=== PATIENT | female | born 1950 | race Caucasian/White ===

== ENCOUNTER → 2018-07-02 | Outpatient (CLI) | payer MEDICARE ==
[~2018-07-02] MED LIST: AMINOPHYLLINE 250 MG/10 ML VIAL. ONE; REGADENOSON 0.4 MG/5 ML DISP.SYRIN. IV ONE
--- NOTE | 2018-07-02 09:35 | PCVCIMAG ---
APPROVED REPORT Study performed: 07/02/2018 08:01:24 EXAM: Comprehensive 2D, Doppler, and color-flow Echocardiogram Patient Location: Echo lab Status: routine BSA: 2.03 HR: 76 bpmBP: 146/100 mmHg Rhythm: NSR, bifascicular block Other Information Study Quality: Adequate Risk Factors: Cardiac Risk Factors: HTN, Hyperlipidemia Indications Dyspnea elevated calcium score 2D Dimensions IVSd: 13.18 (7-11mm) LVDd: 34.35 mm PWd: 13.11 (7-11mm) LVDs: 25.66 (25-40mm) Left Atrium: 36.02 (27-40mm) Aortic Root: 29.72 mm LV Single Plane 4CH: 57.26 % LV Single Plane 2CH: 58.69 % Biplane EF: 57.2 % Volumes Left Atrial Volume (Systole) Single Plane 4CH: 64.40 mLSingle Plane 2CH: 60.67 mL LA ESV Index: 31.00 mL/m2 Aortic Valve AoV Peak Robbie.: 1.43 m/s AO Peak Gr.: 8.20 mmHgLVOT Max P.25 mmHg LVOT Max V: 0.90 m/s Mitral Valve E/A Ratio: 0.6 MV Decel. Time: 210.05 ms MV E Max Robbie.: 0.48 m/s MV A Robbie.: 0.74 m/s IVRT: 155.71 ms Pulmonary Valve PV Peak Robbie.: 0.78 m/sPV Peak Gr.: 2.43 mmHg Pulmonary Vein P Vein S: 0.29 m/sP Vein A: 0.32 m/s P Vein D: 0.39 m/sP Vein A Dur.: 114.2 msec P Vein S/D Ratio: 0.74 Tricuspid Valve TR Peak Robbie.: 2.55 m/s TR Peak Gr.: 26.07 mmHg TV Vmax: 0.39 m/s Left Ventricle The left ventricle is normal size. There is normal LV segmental wall motion. Mild concentric left ventricular hypertrophy. Left ventricular systolic function is normal. The left ventricular ejection fraction is within the normal range. LVEF is 55-60%. Grade I - abnormal relaxation pattern. Right Ventricle The right ventricle is normal size. The right ventricular systolic function is normal. Atria The left atrium size is normal. The right atrium size is normal. Aortic Valve The aortic valve is normal in structure. No aortic regurgitation is present. There is no aortic valvular stenosis. Mitral Valve The mitral valve is normal in structure. Trace mitral regurgitation. No evidence of mitral valve stenosis. Tricuspid Valve The tricuspid valve is normal in structure. Mild tricuspid regurgitation with PAP of 33 mmHg. Pulmonic Valve The pulmonary valve is normal in structure. There is no pulmonic valvular regurgitation. Great Vessels The aortic root is normal in size. IVC is normal in size and collapses >50% with inspiration. Pericardium There is no pericardial effusion. There is no pleural effusion. <Conclusion> The left ventricle is normal size. Mild concentric left ventricular hypertrophy. Left ventricular systolic function is normal. Grade I - abnormal relaxation pattern. The right ventricle is normal size. The left atrium size is normal. The aortic valve is normal in structure. Trace mitral regurgitation. Mild tricuspid regurgitation with PAP of 33 mmHg.
--- NOTE | 2018-07-02 13:19 | PCVCIMAG ---
APPROVED REPORT Imaging Protocol: Rest Tc-99m/Stress Tc-99m 1 day Study performed: 07/02/2018 08:44:14 Indication: Dyspnea, High Ca Score Patient Location: Out-Patient Stress Nurse: Jane Solorzano RN, Tammy Stratton RN DC Tech:Gilda Rishi [facility] Ht: 5 ft 7 in Wt: 201 lbs BSA: 2.03 m2 HR: 71 bpm BP: 183/96 mmHg BMI: 31.47 Rhythm: Sinus Rhythm, RBBB, Bifascicular block Medical History Medical History: HTN, Hyperlipidemia Medications: Livalo, ASA, Xanax, Wellbutrin, Lisinopril, Metformin, Imitrex, Effexor, Ambien, Coreg Allergies: Iodine, Dilaudid Cardiac Risk Factors: Age Pretest Chest Pain Characteristics: No chest pain Exercise History: Sedentary Meds Held (24 hrs): Coreg Resting Data Rest SPECT myocardial perfusion imaging was performed in supine position 45 minutes following the intravenous injection of 9.7 mCi of Tc-99m Sestamibi. Time of rest injection: 0845 Date: 07/02/2018 Administration Route: IV Administration Site: Right Hand Pharmacologic Stress Pharmacologic stress test was performed by injecting Regadenoson 0.4 mg IV push over 10-15 seconds immediately followed by the intravenous injection of 35.1 mCi of Tc-99m Sestamibi. Time of stress injection: 1010 Date: 07/02/2018 Administration Route: IV Administration Site: Right Hand Gated Stress SPECT was performed 45 minutes after stress injection. The images were gated to evaluate regional wall motion and calculate left ventricular ejection fraction. Stress Test Details Stress Test: Pharmacologic stress testing performed using 0.4 mg of regadenoson per 5 mL given IV over 10 seconds. Reason for pharmacologic stress test: leg issues. Reversal agent Aminophyline 100 mg, given intravenously for nausea and persistent low blood pressure. HRMax Heart Rate (APMHR): 153 bpm Resting HR: 71 bpmTarget HR (85% APMHR): 130 bpm Max HR Achieved: 89 bpm % of APMHR: 58 Recovery HR: 75 bpm BP Resting BP: 183/96 mmHg Max BP: 88/50 mmHg Recovery BP: 123/73 mmHg ECG Resting ECG: Sinus Rhythm, RBBB, Bifascicular block Stress ECG: Sinus Rhythm, RBBB, Bifascicular block ST Change: Non-ischemic Recovery ECG: Sinus Rhythm, RBBB, Bifascicular block Clinical Reason for Termination: Completed protocol Stress Symptoms: Headache, Lightheaded, Nausea Exercise duration: 0 min 55 sec Symptoms resolved during recovery with aminophylline. Nurse Comments BP dropped with Debra admin plus symptoms as listed above, reversed with Aminophylline and IVF (NS 300cc) Pt recovered appropriately. Study Quality Study: Good Study Data Post stress, the left ventricular ejection was 83%.. SSS: 0 SRS: 0 SDS: 0 TID = 1.00. Perfusion Normal left ventricular perfusion. Normal perfusion on both the stress and rest images. Wall Motion Normal left ventricular wall motion. Nuclear Conclusion ECG Findings: negative for ischemia Clinical Findings: non-diagnostic Nuclear Findings: negative for ischemia Exercise Capacity: not assessed Left Ventricular Function: normal Risk Study: low This study is of low probability for inducible ischemia or prior infarct. Normal global and segmental LV systolic function.
== END | disposition home or self-care (01) ==
LOC: PCVCIMAG 10:51
PROVIDERS: ATTEND Internal Medicine Cardiovascular Disease
DX: I07.1 Rheumatic tricuspid insufficiency (principal); I11.9 Hypertensive heart disease without heart failure; R06.00 Dyspnea, unspecified; R93.1 Abnormal findings on diagnostic imaging of heart and coronary circulation; E78.00 Pure hypercholesterolemia, unspecified; Z79.82 Long term (current) use of aspirin; Z79.84 Long term (current) use of oral hypoglycemic drugs
CPT/HCPCS: 78452; 93017; 93306; A9500; G0463; J0280; J2785